=== PATIENT | male | born 1975 | race Caucasian/White ===

== ENCOUNTER 2016-07-16 01:36 | Emergency (ER) | payer OTHER ==
[2016-07-16 02:17] LABS: BASOPHIL 0.3 % (0-2); EOSINOPHIL 0.7 % (0-5); HCT 40.7 % (42.0-52.0); HGB 14.2 g/dl (13.2-18.0); LYMPHOCYTE 34.4 % (15-48); MCHC 34.9 g/dL (32.0-36.0); MCV 83.2 fL (78.0-100.0); MONOCYTE 5.8 % (0-12); MPV 12.1 fL (6.0-9.5); NEUTROPHIL 58.8 % (41-80); PLT 184 K/uL (150-400); RBC 4.89 M/uL (4.70-6.00); WBC 6.7 K/uL (4.0-10.5)
[2016-07-16 02:27] LABS: INR 1.03 (0.9-1.2); PROTHROMBIN TIME 13.1 SECONDS (11.7-14.0); PTT 27.7 SECONDS (23.2-31.4)
[2016-07-16 02:29] LABS: D-DIMER 0.38 ug/mLFEU (0.00-0.41)
[2016-07-16 02:34] LABS: ALBUMIN 4.7 g/dL (3.5-5.0); BILIRUBIN - TOTAL 0.6 mg/dL (0.1-1.0); GLOBULIN (CALCULATION) 1.9 g/dL (2.2-4.2); MAGNESIUM 2.14 mg/dL (1.40-2.10); POTASSIUM 3.8 mmol/L (3.5-5.1); TOTAL PROTEIN 6.6 g/dL (6.4-8.3)
[2016-07-16 02:36] LABS: CKMB 4.68 ng/mL (0.97-4.94); MYOGLOBIN 36 ng/mL (26-65); PRO-BNP 14 pg/mL (0-125); TROPONIN T < 0.010 ng/mL
[2016-07-16 06:42] LABS: CKMB 3.92 ng/mL (0.97-4.94); TROPONIN T < 0.010 ng/mL
== END 2016-07-16 06:15 | disposition home or self-care (01) ==
LOC: FER 01:36
PROVIDERS: Emergency Medicine Emergency Medical Services
DX: R07.9 Chest pain, unspecified (principal); R20.0 Anesthesia of skin; E86.9 Volume depletion, unspecified
CPT/HCPCS: 36415; 71010; 80053; 82550; 82553; 83690; 83735; 83874; 83880; 84484; 85025; 85379; 85610; 85730; 93005; J1885; J2930

== ENCOUNTER 2020-11-10 06:50 | Emergency (ER) | payer OTHER ==
[~2020-11-10 06:50] MED LIST: ETODOLAC500 MG PO
[2020-11-10 07:53] LABS: BASOPHIL 0.5 % (0-2); EOSINOPHIL 1.2 % (0-5); HGB 13.8 g/dl (13.2-18.0); LYMPHOCYTE 24.6 % (15-48); MCH 29.7 pg (25.0-31.0); MCHC 34.5 g/dL (32.0-36.0); MCV 86.2 fL (78.0-100.0); MONOCYTE 7.8 % (0-12); MPV 12.2 fL (6.0-9.5); NEUTROPHIL 65.6 % (41-80); NRBC 0; PLT 153 K/uL (150-400); RBC 4.64 M/uL (4.70-6.00); RDW 12.7 % (11.5-14.0)
[2020-11-10 07:59] LABS: INR 1.01 (0.9-1.2); PROTHROMBIN TIME 12.7 SECONDS (11.8-13.4)
[2020-11-10 08:18] LABS: ALBUMIN 3.7 g/dL (3.4-5.0); BILIRUBIN - TOTAL 0.7 mg/dL (0.2-1.0); BUN/CREAT RATIO (CALC) 14.9 RATIO; CREATININE 0.87 mg/dL (0.67-1.17); GLOBULIN (CALCULATION) 2.7 g/dL; POTASSIUM 3.8 mmol/L (3.5-5.1); TOTAL PROTEIN 6.4 g/dL (6.4-8.2)
== END 2020-11-10 12:09 | disposition home or self-care (01) ==
LOC: FER 06:50
PROVIDERS: Emergency Medicine
DX: R07.89 Other chest pain (principal); R20.2 Paresthesia of skin; Z20.822 Contact with and (suspected) exposure to COVID-19
CPT/HCPCS: 36415; 71045; 80053; 84484; 85025; 85610; 85730; 93005; U0002